=== PATIENT | female | born 1945 | race Caucasian/White ===

== ENCOUNTER 2021-01-10 07:46 | Emergency (ER) | payer MEDICARE ==
[~2021-01-10] VITALS: Ht 154.9 cm; Wt 67.7 kg
[2021-01-10] MEDS ORDERED: IV NORMAL SALINE 1,000ML 1,000 ML IV ONE ×2 (08:15→12:30)
--- NOTE | 2021-01-10 08:33 | PHYS DOC ---
Past History Past Medical History: Anxiety, Cancer, Hypertension Additional Past Medical Histor: Breast Cancer with mets, gout Past Surgical History: Appendectomy Additional Past Surgical Histo: L 4th finger sx, R toe amputation, cataracts, mastectomy, breast reconstruc Smoking: Non-smoker Alcohol Use: None Drug Use: None General Adult EDM: Chief Complaint: MECHANICAL FALL HPI: HPI: 75-year-old female with past medical history of metastatic breast cancer presents with report of mechanical slip and fall at home in the bathroom yesterday afternoon at approximately 1600. Patient reports she thinks her walker caught on the bath mat and she fell backwards. Patient denies striking her head or loss of consciousness. Denies neck pain. Patient reports has since had significant pain to her upper abdomen and lower rib cage as well as her left hip. Patient denies any fever or chills. Patient does report some associated nausea. Patient reports history of left-sided pelvic fracture approximately 4 years ago. Reports significant pain upon waking this morning with decision to then present to the ER for further evaluation and treatment. Denies use of b lood thinners. Patient does report some COVID-19 exposure from a [id number] on Saturday who recently tested positive for COVID-19. Patient does report she has been vaccinated with both doses of Moderna. Review of Systems: Review of Systems: Constitutional: Denies fever or chills Eyes: Denies redness or eye pain HENT: Denies nasal congestion or epistaxis Respiratory: Denies cough or shortness of breath Cardiovascular: Reports bilateral lateral chest pain; denies palpitations GI: Reports upper abdominal pain and nausea : Denies dysuria or hematuria Musculoskeletal: Denies neck or back pain; reports left hip pain Integument: Denies rash or skin lesions Neurologic: Denies headache, focal weakness or sensory changes Complete systems were reviewed and found to be within normal limits, except as documented in this note. Current Medications: Current Meds: Current Medications Medications (Trade) Dose Ordered Sig/Lorene Start Time Stop Time Status Last Admin Dose Admin Sodium Chloride 1,000 ml @ 1,000 mls/hr 1X ONCE 01/10/21 08:15 01/10/21 09:14 Allergies: Allergies: Allergies Coded Allergies Type Severity Reaction Last Updated Verified cefaclor Allergy Severe Nausea 01/10/21 Yes exemestane Allergy Severe Anaphylaxis 01/10/21 Yes paclitaxel Allergy Severe Anaphylaxis 01/10/21 Yes rosuvastatin Allergy Intermediate 01/10/21 Yes Penicillins Allergy Unknown 01/10/21 Yes acetaminophen Allergy Unknown 01/10/21 Yes alcohol Allergy Unknown 01/10/21 Yes anastrozole Allergy Unknown 01/10/21 Yes colchicine Allergy Unknown Diarrhea 01/10/21 Yes erythromycin base Allergy Unknown 01/10/21 Yes ezetimibe Allergy Unknown 01/10/21 Yes gum mastic Allergy Unknown 01/10/21 Yes hydrocodone Allergy Unknown 01/10/21 Yes iohexol Allergy Unknown 01/10/21 Yes lisinopril Allergy Unknown 01/10/21 Yes methyl salicylate Allergy Unknown 01/10/21 Yes metronidazole Allergy Unknown Nausea and Vomiting 01/10/21 Yes storax Allergy Unknown 01/10/21 Yes Physical Exam: PE: Constitutional: Well developed, frail, moderate pain, non-toxic appearance HENT: Normocephalic, atraumatic, TMs clear bilaterally, nares normal, mucous membranes dry Eyes: PERRL, EOMI, conjunctiva normal, no discharge, no nystagmus Neck: Normal range of motion, no midline tenderness, supple Lungs & Thorax: No respiratory distress, equal chest rise and fall, bilateral chest wall discomfort with palpation of lower ribs right greater than left Abdomen: Soft, upper right quadrant tenderness; pelvis stable, tenderness to pubic bone Skin: Warm, dry, no erythema, no laceration Back: No midline tenderness, no CVA tenderness Extremities: Left hip tenderness, ROM limited to left hip due to pain, distal p ulses intact to all extremities, 1+ BLE edema Neurologic: Alert and oriented X 3, normal motor function, normal sensory function, no focal deficits noted Psychologic: Affect normal, judgment normal Current Patient Data: Vital Signs: Vital Signs Date Time Temp Pulse Resp B/P (MAP) Pulse Ox O2 Delivery O2 Flow Rate FiO2 01/10/21 07:57 97.5 69 18 123/69 100 Room Air EKG: EKG: @0818 NSR at 71bpm, no ST elevation, QRS 86ms, QT/QTc 436/474ms Radiology/Procedures: Radiology/Procedures: PROCEDURE: CT HEAD AND CERVICAL SPINE WO EXAM: CT HEAD WITHOUT IV CONTRAST CLINICAL HISTORY: Reason: pain s/p fall / Spl. Instructions: / History: COMPARISON: None. TECHNIQUE: Routine CT of the head without contrast. Soft tissues and bone windows were reviewed. PQRS compliance statement - One or more of the following individualized dose reduction techniques were utilized for this study: 1. Automated exposure control 2. Adjustment of the mA and/or kV according to patient size 3. Use of iterative reconstruction technique FINDINGS: There is no evidence of hemorrhage, mass or extra-axial fluid collection. Bonds-white differentiation is maintained with no evidence of edema. Subcortical, periventricular as well as deep white matter foci of hypoattenuation likely changes of chronic small vessel disease. There is no mass effect or shift of the intracranial structures. The ventricles, basilar cisterns and cortical sulci are normal in size and configuration for the patients stated age. The cerebellum and brainstem are unremarkable. The calvarium demonstrates no evidence of fracture or focal lesion. Sclerotic foci within the calvarium likely metastatic disease. There is normal aeration of the visualized paranasal sinuses and mastoid air cells. The visualized portions of the orbits are normal. Atherosclerotic calcifications of the intracranial internal carotid arteries is seen. IMPRESSION: 1. No evidence for acute intracranial process. 2. Sclerotic foci within the calvarium likely metastatic disease. EXAM: CT CERVICAL SPINE WITHOUT IV CONTRAST CLINICAL HISTORY: Reason: pain s/p fall / Spl. Instructions: / History: COMPARISON: None available. TECHNIQUE: Helical CT of the cervical spine was performed. Axial, coronal and sagittal reformatted images were also performed. PQRS compliance statement - One or more of the following individualized dose reduction techniques were utilized for this study: 1. Automated exposure control 2. Adjustment of the mA and/or kV according to patient size 3. Use of iterative reconstruction technique FINDINGS: Vertebral body heights are preserved. Sclerotic foci scattered within the cervical spine likely represents metastatic disease. No spondylolisthesis. Atlantodental degenerative changes are seen. Mild C5-6 disc height loss. Small posterior disc osteophyte complex C5-6 results in mild central canal stenosis. Facet degenerative changes are seen bilaterally at multiple levels. Loculated appearing right pleural fluid is partially profiled. IMPRESSION: 1. No acute cervical spine fracture or subluxation. 2. Multilevel degenerative changes most prominent at C5-6. 3. Sclerotic lesions within the cervical spine likely represents blastic metastatic disease. 4. Loculated appearing right pleural fluid is partially profiled. Electronically signed by: John Maria MD (01/10/2021 9:30 AM) [id number] PROCEDURE: CT CHEST ABDOMEN PELVIS WO EXAM: CT CHEST, ABDOMEN, AND PELVIS WITHOUT CONTRAST INDICATION: Pain status post fall COMPARISON: None TECHNIQUE: Helical CT imaging performed of the chest, abdomen and pelvis without the use of intravenous contrast. Sagittal and coronal reformats were obtained. One or more of the following individualized dose reduction techniques were utilized for this examination: 1. Automated exposure control 2. Adjustment of the mA and/or kV according to patient size 3. Use of iterative reconstruction technique. FINDINGS: CHEST: Thyroid gland and thoracic inlet: Unremarkable. Heart and great vessels: Heart is normal in size. Trace pericardial fluid. There are coronary artery calcifications. The thoracic aorta is normal in caliber. Mediastinum and mili: There are calcified mediastinal and hilar lymph nodes. Possible mildly enlarged right hilar lymph nodes, evaluation limited without IV contrast. No mediastinal hematoma. Lungs and pleura: There is a multiloculated right pleural effusion with 1 loculated component along the upper lateral hemithorax measuring 4.8 x 2.8 cm, and another loculated component along the posterior lung base measuring 8.0 x 2.0 cm. Additional tiny scattered loculations. There is mild right lung volume loss with linear opacities in the right lower lobe and middle lobe. There is calcified granulomas in the right upper lobe and left lower lobe. Chest wall and axillae: There are bilateral breast implants. Surgical clips in the axillae. No axillary lymphadenopathy. There is a right chest wall port with tip at the superior cavoatrial junction. Bones: There are diffuse sclerotic osseous lesions in the chest. ABDOMEN AND PELVIS: Liver: The liver is heterogeneous with suspected underlying metastatic lesions, greatest in the right hepatic lobe. There is a gas and fluid collection involving the caudate lobe and adjacent fabi hepatis, measuring approximately 5.2 x 3.4 cm, suspicious for abscess. Gallbladder/Biliary Tree: Gallbladder is mildly distended. Bowel ducts are normal. Pancreas: Normal. Spleen: Unremarkable. Adrenal Glands: Normal. Kidneys/Ureters/Bladder: Normal. Reproductive Organs: Uterus is anteverted. No adnexal mass. Stomach, small bowel, and colon: The stomach is normal. There is no small bowel obstruction. Colon is unremarkable. Vasculature: Abdominal aorta is normal in caliber. Mild calcified aortoiliac atherosclerosis. Lymph Nodes: No lymphadenopathy. Peritoneum and retroperitoneum: There is pneumoperitoneum in the upper anterior abdomen, greatest anterior to the liver. There is a complex gas and fluid collection at the fabi hepatis and involving the caudate lobe of the liver (image 86, series 2). Small amount of fluid along the anterior margin of the liver. Mild ascites in the pelvis and paracolic gutters. Bones: There are diffuse osseous sclerotic metastases throughout the abdomen and pelvis. Grade 1 spondylolisthesis at L4-L5. Probable subacute or healing pathologic fracture of the left superior-inferior pubic rami. IMPRESSION: 1. Pneumoperitoneum with free air in the anterior upper abdomen suspicious for bowel perforation. 2. Complex gas and fluid collection suspicious for abscess in the caudate lobe of the liver and fabi hepatis, measuring approximate 5.2 x 3.4 cm. 3. Perihepatic fluid along the right hepatic lobe and a small volume of ascites in the pelvis. 4. Heterogeneous appearance of liver suspicious for hepatic metastases. 5. Diffuse osseous metastatic disease. 6. Loculated right pleural effusion. Right lung volume loss with linear opacities in the right middle and lower lobes, which may be scarring or atelectasis. FOR INTERNAL CODING PURPOSES Critical result: Findings discussed with Dr. Murray at 01/10/2021 10:00 AM. RESULT CODE: (C) Electronically signed by: Aniya Mejia MD (01/10/2021 10:32 AM) [id number] PROCEDURE: LEFT FEMUR XRAY XR FEMUR_LEFT 1 VIEW History: Reason: pain s/p fall / Spl. Instructions: / History: Technique: 2 views left femur Comparison: None. Findings: Normal alignment. No fracture. Vascular calcifications. Lower lumbar spondylosis. Impression: 1. No acute osseous abnormality. Electronically signed by: Rosalino Fishman DO (01/10/2021 9:57 AM) [id number] Heart Score: C/O Chest Pain: N/A Course & Med Decision Making: Course & Med Decision Making Pertinent Labs and Imaging studies reviewed. (See chart for details) Patient presents with report of mechanical fall yesterday with subsequent pain to lateral chest wall as well as upper abdomen. Patient does have a history of metastatic breast cancer to the lung and liver. Patient also complaining of left hip pain. Patient neurologically intact. Patient does appear frail with some clinical signs of dehydration. Labs obtained and posted to chart. Significant bandemia appreciated. Lactic acidosis also noted. Patient currently does not meet SIRS criteria. IV fluid hydration given. CT imaging obtained with findings concerning for possible bowel perforation with p neumoperitoneum. There is also concern for possible liver abscess. Patient does report undergoing a Y 90 treatment in August 2020 at [facility] for her liver masses. Denies other procedure or biopsy. LFT elevation likely chronic. Hypomagnesemia addressed. Empiric antibiotic given with Meropenem given patient's significant list of allergies. Pain/nausea addressed. IVF hydration given. Patient requiring transfer to higher level of acuity hospital with surgical capability for admission and for further evaluation and treatment. Patient typically follows at [facility]. Utilize [facility]'s transfer call line. Discussed with Dr. Sekou Martin who is in agreement with transfer for admission. Discussed findings and plan with patient and family, who acknowledge understanding and agreement. Jen Disclaimer: Jen Disclaimer: This electronic medical record was generated, in whole or in part, using a voice recognition dictation system. Departure Departure: Impression: Primary Impression: Pneumoperitoneum Additional Impressions: Pubic bone fracture Qualified Codes: S32.502A - Unspecified fracture of left pubis, initial encounter for closed fracture Hx of breast cancer Liver abscess Bandemia Lactic acidosis Elevated LFTs Hypomagnesemia Disposition: 02 SHORT TERM [facility] ([facility]- Dr. Sapp ) Condition: GUARDED Referrals: PCP,NO (PCP) Critical Care Time Critical care time was 30 minutes which includes time at bedside, spent in discussion of patient's care with specialists and/or family members, with interpretation of laboratory and/or radiological studies and is exclusive of procedures. HUONG MURRAY DO Jan 10, 2021 08:33
[2021-01-10 08:54] LABS: BASO % 0 % (0-3); EOS % 0 % (0-3); HEMATOCRIT 34.3 % (36.0-47.0); HEMOGLOBIN 11.7 g/dL (12.0-15.5); LYMPH # 0.5 x10^3/uL (1.0-4.8); LYMPH % 5 % (24-48); MEAN CORPUSCULAR HEMOGLOBIN 37 pg (25-35); MEAN CORPUSCULAR HGB CONC 34 g/dL (31-37); MEAN CORPUSCULAR VOLUME 107 fL (79-100); MONO # 0.6 x10^3/uL (0.0-1.1); MONO % 5 % (0-9); NEUT # 9.6 x10^3uL (1.8-7.7); NEUT % 90 % (31-73); PLATELET COUNT 110 x10^3/uL (140-400); WHITE BLOOD COUNT 10.7 x10^3/uL (4.0-11.0)
[2021-01-10] MEDS ORDERED: ONDANSETRON PF 4 MG/2 ML VIAL. IVP ONE ×2 (09:00→12:45)
[2021-01-10 09:17] LABS: % BANDS 17 % (0-9); % LYMPHS 9 % (24-48); % METAS 3 % (0-0); % MONOS 8 % (0-10); % MYELOS 4 % (0-0); % SEGS 59 % (35-66)
[2021-01-10 09:18] LABS: PLT ESTIMATE DECREASED (ADEQUATE)
[2021-01-10 09:25] LABS: MAGNESIUM 1.5 mg/dL (1.8-2.4)
--- NOTE | 2021-01-10 09:32 | RAD ---
EXAM: CT HEAD WITHOUT IV CONTRAST CLINICAL HISTORY: Reason: pain s/p fall / Spl. Instructions: / History: COMPARISON: None. TECHNIQUE: Routine CT of the head without contrast. Soft tissues and bone windows were reviewed. PQRS compliance statement - One or more of the following individualized dose reduction techniques wer e utilized for this study: 1. Automated exposure control 2. Adjustment of the mA and/or kV according to patient size 3. Use of iterative reconstruction technique FINDINGS: There is no evidence of hemorrhage, mass or extra-axial fluid collection. Bonds-white differentiation is maintained with no evidence of edema. Subcortical, periventricular as w ell as deep white matter foci of hypoattenuation likely changes of chronic small vessel disease. There is no mass effect or shift of the intracranial structures. The ventricles, basilar cisterns and cortical sulci are normal in size and configuration for the laurie ents stated age. The cerebellum and brainstem are unremarkable. The calvarium demonstrates no evidence of fracture or focal lesion. Sclerotic foci within the calvari um likely metastatic disease. There is normal aeration of the visualized paranasal sinuses and mastoid air cells. The visualized portions of the orbits are normal. Atherosclerotic calcifications of the intracranial internal carotid arteries is seen. IMPRESSION: 1. No evidence for acute intracranial process. 2. Sclerotic foci within the calvarium likely metastatic disease. EXAM: CT CERVICAL SPINE WITHOUT IV CONTRAST CLINICAL HISTORY: Reason: pain s/p fall / Spl. Instructions: / History: COMPARISON: None available. TECHNIQUE: Helical CT of the cervical spine was performed. Axial, coronal and sagittal reformatted im ages were also performed. PQRS compliance statement - One or more of the following individualized dose reduction techniques wer e utilized for this study: 1. Automated exposure control 2. Adjustment of the mA and/or kV according to patient size 3. Use of iterative reconstruction technique FINDINGS: Vertebral body heights are preserved. Sclerotic foci scattered within the cervical spine likely repre sents metastatic disease. No spondylolisthesis. Atlantodental degenerative changes are seen. Mild C5- 6 disc height loss. Small posterior disc osteophyte complex C5-6 results in mild central canal stenos is. Facet degenerative changes are seen bilaterally at multiple levels. Loculated appearing right pleural fluid is partially profiled. IMPRESSION: 1. No acute cervical spine fracture or subluxation. 2. Multilevel degenerative changes most prominent at C5-6. 3. Sclerotic lesions within the cervical spine likely represents blastic metastatic disease. 4. Loculated appearing right pleural fluid is partially profiled. Electronically signed by: John Maria MD (01/10/2021 9:30 AM) [id number]
--- NOTE | 2021-01-10 09:59 | RAD ---
XR FEMUR_LEFT 1 VIEW History: Reason: pain s/p fall / Spl. Instructions: / History: Technique: 2 views left femur Comparison: None. Findings: Normal alignment. No fracture. Vascular calcifications. Lower lumbar spondylosis. Impression: 1. No acute osseous abnormality. Electronically signed by: Rosalino Fishman DO (01/10/2021 9:57 AM) [id number]
--- NOTE | 2021-01-10 10:34 | RAD ---
EXAM: CT CHEST, ABDOMEN, AND PELVIS WITHOUT CONTRAST INDICATION: Pain status post fall COMPARISON: None TECHNIQUE: Helical CT imaging performed of the chest, abdomen and pelvis without the use of intraveno us contrast. Sagittal and coronal reformats were obtained. One or more of the following individualized dose reduction techniques were utilized for this examinat ion: 1. Automated exposure control 2. Adjustment of the mA and/or kV according to patient size 3. Use of iterative reconstruction technique. FINDINGS: CHEST: Thyroid gland and thoracic inlet: Unremarkable. Heart and great vessels: Heart is normal in size. Trace pericardial fluid. There are coronary artery calcifications. The thoracic aorta is normal in caliber. Mediastinum and mili: There are calcified mediastinal and hilar lymph nodes. Possible mildly enlarged right hilar lymph nodes, evaluation limited without IV contrast. No mediastinal hematoma. Lungs and pleura: There is a multiloculated right pleural effusion with 1 loculated component along t he upper lateral hemithorax measuring 4.8 x 2.8 cm, and another loculated component along the posteri or lung base measuring 8.0 x 2.0 cm. Additional tiny scattered loculations. There is mild right lung volume loss with linear opacities in the right lower lobe and middle lobe. There is calcified granulo mas in the right upper lobe and left lower lobe. Chest wall and axillae: There are bilateral breast implants. Surgical clips in the axillae. No axilla ry lymphadenopathy. There is a right chest wall port with tip at the superior cavoatrial junction. Bones: There are diffuse sclerotic osseous lesions in the chest. ABDOMEN AND PELVIS: Liver: The liver is heterogeneous with suspected underlying metastatic lesions, greatest in the right hepatic lobe. There is a gas and fluid collection involving the caudate lobe and adjacent fabi hepa tis, measuring approximately 5.2 x 3.4 cm, suspicious for abscess. Gallbladder/Biliary Tree: Gallbladder is mildly distended. Bowel ducts are normal. Pancreas: Normal. Spleen: Unremarkable. Adrenal Glands: Normal. Kidneys/Ureters/Bladder: Normal. Reproductive Organs: Uterus is anteverted. No adnexal mass. Stomach, small bowel, and colon: The stomach is normal. There is no small bowel obstruction. Colon is unremarkable. Vasculature: Abdominal aorta is normal in caliber. Mild calcified aortoiliac atherosclerosis. Lymph Nodes: No lymphadenopathy. Peritoneum and retroperitoneum: There is pneumoperitoneum in the upper anterior abdomen, greatest ant erior to the liver. There is a complex gas and fluid collection at the fabi hepatis and involving th e caudate lobe of the liver (image 86, series 2). Small amount of fluid along the anterior margin of the liver. Mild ascites in the pelvis and paracolic gutters. Bones: There are diffuse osseous sclerotic metastases throughout the abdomen and pelvis. Grade 1 spon dylolisthesis at L4-L5. Probable subacute or healing pathologic fracture of the left superior-inferio r pubic rami. IMPRESSION: 1. Pneumoperitoneum with free air in the anterior upper abdomen suspicious for bowel perforation. 2. Complex gas and fluid collection suspicious for abscess in the caudate lobe of the liver and port a hepatis, measuring approximate 5.2 x 3.4 cm. 3. Perihepatic fluid along the right hepatic lobe and a small volume of ascites in the pelvis. 4. Heterogeneous appearance of liver suspicious for hepatic metastases. 5. Diffuse osseous metastatic disease. 6. Loculated right pleural effusion. Right lung volume loss with linear opacities in the right middle and lower lobes, which may be scarring or atelectasis. FOR INTERNAL CODING PURPOSES Critical result: Findings discussed with Dr. Roberson at 01/10/2021 10:00 AM. RESULT CODE: (C) Electronically signed by: Aniya Mejia MD (01/10/2021 10:32 AM) [id number]
[2021-01-10] MEDS ORDERED: MAGNESIUM SULFATE 2GM 50 ML IV ONE (11:00)
[2021-01-10] MEDS ORDERED: MEROPENEM 1 GM in IV NORMAL SALINE 100ML 100 ML IV ONE (11:00)
[2021-01-10 11:01] LABS: CREATININE 1.5 mg/dL (0.6-1.0); GFR 33.9; POTASSIUM 3.8 mmol/L (3.5-5.1)
[2021-01-10 11:06] LABS: ALBUMIN 2.4 g/dL (3.4-5.0); ALBUMIN/GLOBULIN RATIO 0.7 (1.0-1.7); TOTAL BILIRUBIN 11.9 mg/dL (0.2-1.0); TOTAL PROTEIN 5.7 g/dL (6.4-8.2)
[2021-01-10] MEDS ORDERED: MEROPENEM 1 GM VIAL IV ONE (11:10)
[2021-01-10] MEDS ORDERED: IV NORMAL SALINE 100ML 100 ML ONE (11:11)
[2021-01-10 11:42] LABS: CLARITY,URINE CLEAR; COLOR,URINE AMBER; GLUCOSE,URINE NEG (NEG)
[2021-01-10 11:43] LABS: BILIRUBIN,URINE MOD (NEG); NITRITE,URINE NEG (NEG); RBC,URINE RARE /HPF (0-2)
[2021-01-10 11:44] LABS: BACTERIA,URINE MOD /HPF (0-FEW)
[2021-01-10 12:18] VITALS: BP 99/44
--- NOTE | 2021-01-10 14:07 | EKG ---
[address] [address] Test Date: 2021-01-10 Test Time: 08:18:36 Pat Name: DOMINGA RUIZ Department: Room: Gender: F Lathe Set Up Operator: KEYSHAWN : 1945 Requested By: HUONG MURRAY Order Number: [id number] Reading MD: Measurements Intervals [place] Rate: 71 P: 0 OR: 186 QRS: 1 QRSD: 86 T: 28 QT: 436 QTc: 474 Interpretive Statements SINUS RHYTHM PROLONGED QT NO SPECIFIC ECG ABNORMALITIES RI6.02 No previous ECG available for comparison
== END 2021-01-10 12:57 | disposition short-term general hospital (02) ==
LOC: ER 07:46
DX: S32.502A Unspecified fracture of left pubis, initial encounter for closed fracture (principal); K66.8 Other specified disorders of peritoneum; K75.0 Abscess of liver; D72.825 Bandemia; E87.2 Acidosis; R79.89 Other specified abnormal findings of blood chemistry; E83.42 Hypomagnesemia; F41.9 Anxiety disorder, unspecified; I10 Essential (primary) hypertension; Z20.822 Contact with and (suspected) exposure to COVID-19; Z85.3 Personal history of malignant neoplasm of breast; Z90.89 Acquired absence of other organs; Z88.1 Allergy status to other antibiotic agents; Z88.8 Allergy status to other drugs, medicaments and biological substances; Z88.0 Allergy status to penicillin; Z91.041 Radiographic dye allergy status; W01.0XXA Fall on same level from slipping, tripping and stumbling without subsequent striking against object, initial encounter; Y93.89 Activity, other specified; Y92.89 Other specified places as the place of occurrence of the external cause; Y99.8 Other external cause status
CPT/HCPCS: 36415; 70450; 71250; 72125; 73552; 74176; 80053; 81001; 82553; 83605; 83690; 83735; 84484; 85007; 85025; 87040; 87086; 87205; 87426; 93005; 96361; 96365; 96375; 96376; 99291; C9803; J2185; J2405; J3010; J3475; J7030; U0003; 87077; 87186